=== PATIENT | female | born 1990 | race Caucasian/White ===

== ENCOUNTER 2018-02-04 22:38 | Emergency (ER) | payer SELFPAY ==
--- NOTE | 2018-02-04 22:40 | ER Report ---
History and Physical Time Seen By MD: 22:40 HPI/ROS CHIEF COMPLAINT: Retirement clearance HISTORY OF PRESENT ILLNESS: 27-year-old female brought in by police for care home clearance. Patient was picked up as a DUI. She voices no complaints. Patient denies any significant past medical history. REVIEW OF SYSTEMS: Respiratory: No cough, no dyspnea. Cardiovascular: No chest pain, no palpitations. Gastrointestinal: No vomiting, no abdominal pain. Musculoskeletal: No back pain. Allergies: Coded Allergies: No Known Drug Allergies (Unverified , 08/26/15) Home Meds No Active Prescriptions or Reported Meds Reviewed Nurses Notes: Yes Old Medical Records Reviewed: Yes Hx Smoking: No Smoking Status: Never Smoker Exposure to Second Hand Smoke?: No Hx Alcohol Use: Yes Constitutional Vital Sign - Last 24 Hours 02/04/18 22:43 Temp 98.7 Pulse 120 Resp 18 B/P (MAP) 159/114 Pulse Ox 94 O2 Delivery Room Air Physical Exam General Appearance: The patient is alert, has no immediate need for airway protection and no current signs of toxicity. The patient the head and neck reveal no tenderness or trauma, vital signs stable, afebrile, pulse ox normal HEENT: Pupils equal and round no injection. Oropharynx without dental trauma Respiratory: Chest is non tender, lungs are clear to auscultation. Cardiac: regular rate and rhythm Gastrointestinal: Abdomen is soft and non tender, no masses, bowel sounds normal. Musculoskeletal: Neck: Neck is supple and non tender. Extremities have full range of motion and are non tender. Skin: No rashes or lesions. DIFFERENTIAL DIAGNOSIS: After history and physical exam differential diagnosis was considered for alcohol intoxication, polysubstance abuse, care home clearance Medical Decision Making ED Course/Re-evaluation ED Course Patient admitted to an examination room. H&P is done. The dental diagnoses was considered. On clinical examination. Patient's voicing no complaints. Her vital signs are stable. She has no signs of trauma. On clinical examination. She's medical cleared for care home admission. Decision to Disposition Date: Feb 04, 2018 Decision to Disposition Time: 22:45 Depart Departure Latest Vital Signs Vital Signs Date Time Temp Pulse Resp B/P (MAP) Pulse Ox O2 Delivery O2 Flow Rate FiO2 02/04/18 22:43 98.7 120 18 159/114 94 Room Air Impression: Primary Impression: Medical clearance for incarceration Additional Impression: Alcohol intoxication Condition: Improved Disposition: [facility] TO RETIREMENT/CORRECTIONAL F New Scripts No Active Prescriptions or Reported Meds Patient Instructions: Alcohol Intoxication (ED) Additional Instructions: Medically cleared for care home admission Problem Qualifiers Additional Impression: Alcohol intoxication Complication of substance-induced condition: uncomplicated Qualified Codes: F10.920 - Alcohol use, unspecified with intoxication, uncomplicated CARLY ROCK DO Feb 04, 2018 22:40
[2018-02-04 22:43] VITALS: BP 159/114
== END 2018-02-04 22:51 ==
LOC: ER 22:47
DX: F10.920 Alcohol use, unspecified with intoxication, uncomplicated (principal)
CPT/HCPCS: 99281